=== PATIENT | male | born 1950 | race Caucasian/White ===

== ENCOUNTER → 2025-05-13 | Outpatient (CLI) | payer OTHER ==
[~2025-05-13] MED LIST: ALLO100T PO; APIX5TAB5 PO; ATOR20TA PO; CARV3.1291 PO; FLUT1BLS4 INH; GABA300C PO; HYDR-3965 PO; SEVE800T8 PO; [UNRECOGNIZED DRUG - CODE] PO
[2025-05-13 10:19] LABS: MEAN PLATELET VOLUME 8.2 FL (7.4-10.4); RED CELL DISTRIBUTION WIDTH 16.9 % (11.5-14.5)
[2025-05-13 10:35] LABS: APTT 42 SECONDS (22-32); INR 3.3 INR
[2025-05-13 10:37] LABS: CREATININE 5.41 MG/DL (0.60-1.10); TOTAL CARBON DIOXIDE 31.2 MMOL/L (24-32); eGFR 10 ML/MIN
--- NOTE | 2025-05-14 14:43 | RADIOLOGY REPORT ---
CT CTA PRE WATCHMAN INDICATION: ATRIAL FIBRILLATION;ATRIAL FLUTTER TECHNIQUE: CT cardiac imaging for pulmonary vein analysis has been obtained. 3- D, MIP, and MPR images obtained. All CT scans at this facility use dose modulation, iterative reconstruction, and/or weight based dosing when appropriate to reduce radiation dose to as low as reasonably achievable. COMPARISON: None available at the time of dictation. STUDY QUALITY: Good FINDINGS: PULMONARY VEINS (PV): Conventional drainage into left atrium 2 pulmonary vein ostia on the right and 2 on the left Ostial measurements on coronal plane are as follows: Right superior vein ostium: 22 mm right inferior vein ostium: 16 mm Left superior vein ostium: 21 mm Left inferior vein ostium: 17 mm PROXIMITY OF ESOPHAGUS TO PV: Esophagus lies left of midline and closely courses to the posterior aspect of the left atrium Left inferior pulmonary vein ostium is approximately 1-2 mm from the esophagus Left superior pulmonary vein is 3-4 mm away from the esophagus The right pulmonary vein ostia lie approximately 31 mm away from the esophagus. CARDIAC CHAMBERS: Dilated appearance of the right atrium. No intracardiac thrombus. Left atrial appendage demonstrates non opacification of the distal aspect which may reflect thrombus. Left atrial opening measures a proximally 23 x 21 mm OTHER: Normal caliber of thoracic aorta and central pulmonary arteries. Coronary artery calcifications. Calcification along the left main coronary artery. IMPRESSION: Conventional pulmonary venous drainage into left atrium. No pulmonary vein stenosis. Left atrial appendage demonstrates non opacification of the distal aspect which may reflect thrombus. Left atrial opening measures a proximally 23 x 21 mm
== END | disposition home or self-care (01) ==
LOC: RAD 09:45
PROVIDERS: ATTEND Student in an Organized Health Care Education/Training Program
DX: I25.10 Atherosclerotic heart disease of native coronary artery without angina pectoris (principal); I48.91 Unspecified atrial fibrillation; I48.92 Unspecified atrial flutter
CPT/HCPCS: 36415; 71275; 75572; 80053; 85025; 85610; 85730; Q9967

== ENCOUNTER → 2025-08-19 | Day surgery (SDC) | payer MEDICARE, OTHER ==
[~2025-08-19] MED LIST changes: +LIDOcaine 1%/PF 5ML 10 MG/ML VIAL ONE
[2025-08-19 12:45] VITALS: BP 150/78; PULSE 85; RESP 16; O2SAT 97
--- NOTE | 2025-08-19 13:21 | AUTHORIZATION AND CONSENTS ---
Informed Consent Providers to CC CC: KENIA CUENCA MD ~ Informed Consent Patient seen and evaluated. Mallapati 2, ASA 2. Tunneled dialysis catheter has been in place for 17 months per patient. Procedure risks, benefits, and alternatives discussed with the patient and/or authorized decision maker. Discussed risks including bleeding, infection and foreign body removal.Informed consent obtained. Patient consents to proceed. Moderate Sedation Moderate Sedation : Date of Procedure: Aug 19, 2025 CLARKE EDDY Aug 19, 2025 13:21
--- NOTE | 2025-08-19 14:47 | PROCEDURE NOTE CC ---
Procedure Note Providers to CC CC: KENIA CUENCA MD ~ Planned Procedure RIJ Tunneled Dialysis catheter removal Indications No longer indicated, fistula working properly for HD. 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 Patient verbalized understanding and wishes to proceed. Description Time out performed. RIJ TDC removed with blunt and sharp dissection. 7cc lidocaine infiltrated. Catheter inspected after removal without fracture or clot burden. Pressure applied to site for approximately 5 minutes. Skin closed with steri-strips, no bleeding present. Medipore dressing applied. Patient tolerated procedure well, vitals stable, alert and oriented. Estimated Blood Loss 2cc Complication None CLARKE EDDY Aug 19, 2025 14:47
== END | disposition home or self-care (01) ==
LOC: ANGIO 12:23
PROVIDERS: ATTEND Radiology Diagnostic Radiology
DX: Z45.2 Encounter for adjustment and management of vascular access device (principal); I12.9 Hypertensive chronic kidney disease with stage 1 through stage 4 chronic kidney disease, or unspecified chronic kidney disease; E11.22 Type 2 diabetes mellitus with diabetic chronic kidney disease; N18.9 Chronic kidney disease, unspecified; J44.9 Chronic obstructive pulmonary disease, unspecified; Z98.890 Other specified postprocedural states
CPT/HCPCS: 36589; J3490